=== PATIENT | male | born 1955 ===

== ENCOUNTER 2017-01-25 05:33 | Observation (INO) | payer OTHER ==
[2017-01-25] VITALS (12 sets, daily range): BP systolic 104–150; BP diastolic 29–88
[~2017-01-25] VITALS: Ht 180.3 cm; Wt 90.3 kg
[2017-01-25] MEDS ORDERED: Pantoprazole Inj ONE (06:21)
[2017-01-25] MEDS ORDERED: TRADJENTA5 MG PO (06:43)
[2017-01-25] MEDS ORDERED: GLIPIZIDE XL10 M1 ORAL (06:43)
[2017-01-25] MEDS ORDERED: METFORMIN HCL850 M1 ORAL (06:43)
[2017-01-25] MEDS ORDERED: Glycopyrrolate 0.2mg/ml 1ml Vial ONE (07:00)
[2017-01-25] MEDS ORDERED: Thrombin 5000 units TOPIC ONE ×2 (07:00→11:13)
[2017-01-25] MEDS ORDERED: Norco 5mg/325mg tab ORAL PRN (07:00)
[2017-01-25] MEDS ORDERED: NS Irrig 1000ml ONE (07:00)
[2017-01-25] MEDS ORDERED: Dexamethasone 20mg/5ml IVP ONE (07:00)
[2017-01-25] MEDS ORDERED: Zemuron 50mg/5ml Inj IV ONE (07:00)
[2017-01-25] MEDS ORDERED: Lidocaine 1% MPF 10mg/ml 5ml ONE (07:00)
[2017-01-25] MEDS ORDERED: Propofol 10mg/ml 100ml btl IV ONE (07:00)
[2017-01-25] MEDS ORDERED: Meperidine 25mg/0.5ml Inj (FOR RIGORS ONLY) IV PRN (07:00)
[2017-01-25] MEDS ORDERED: Neostigmine 1mg/ml 10ml Inj ONE (07:00)
[2017-01-25] MEDS ORDERED: LR 1000ml 1,000 ML IVLG SCH (07:00)
[2017-01-25] MEDS ORDERED: Midazolam 2mg/2ml Inj IVP PRN (07:00)
[2017-01-25] MEDS ORDERED: LORazepam Inj 2mg/ml 1ml IV PRN (07:00)
[2017-01-25] MEDS ORDERED: Sterile Water Irrig 1000ml IRRIG ONE (07:00)
[2017-01-25] MEDS ORDERED: ceFAZolin sod 1 GM in NS 55 ML IVPB ONE (07:00)
[2017-01-25] MEDS ORDERED: DiphenhydrAMINE 50mg/ml Inj IVP PRN (07:00)
[2017-01-25] MEDS ORDERED: Norco 7.5mg/325mg tab ORAL PRN (07:00)
[2017-01-25] MEDS ORDERED: Surgicel 4in x 8in TOPIC ONE (07:00)
[2017-01-25] MEDS ORDERED: Midazolam 2mg/2ml Inj ONE (07:00)
[2017-01-25] MEDS ORDERED: Labetalol 5mg/ml 20ml vial IV ONE (07:00)
[2017-01-25] MEDS ORDERED: fentaNYL 100 mcg/2 mL IV ONE (07:00)
[2017-01-25] MEDS ORDERED: Bacitracin 50000 Units Vial IRRIG ONE (07:00)
[2017-01-25] MEDS ORDERED: fentaNYL 250mcg/5ml ONE (07:00)
[2017-01-25] MEDS ORDERED: Ketorolac 30mg Inj IV PRN (07:00)
[2017-01-25] MEDS ORDERED: Metoclopramide 10mg/2ml Inj IVP PRN (07:00)
[2017-01-25] MEDS ORDERED: Hydromorphone 0.5mg/0.5ml inj IVP PRN (07:00)
[2017-01-25] MEDS ORDERED: Ketorolac 60mg Inj IV PRN (07:00)
[2017-01-25] MEDS ORDERED: LR 1000ml ONE (07:00)
[2017-01-25] MEDS ORDERED: Atropine Inj 1mg/10ml Syr IV PRN (07:00)
[2017-01-25] MEDS ORDERED: Oxycodone/Acetaminophen 5-325 ORAL PRN (07:00)
[2017-01-25] MEDS ORDERED: Lidocaine 1% Plain 30 ml INJ ONE (07:00)
[2017-01-25] MEDS ORDERED: fentaNYL 100 mcg/2 mL IV PRN (07:00)
--- NOTE | 2017-01-25 07:00 | Anethesia Preoperative Eval ---
Anesthesia Pre-op PMH/ROS General Date of Evaluation: Jan 25, 2017 Time of Evaluation: 07:11 Anesthesiologist: Jamie ASA Score: ASA 3 Mallampati Score Class I : Soft palate, uvula, fauces, pillars visible Class II: Soft palate, uvula, fauces visible Class III: Soft palate, base of uvula visible Class IV: Only hard plate visible Mallampati Classification: Class II Surgeon: Thelma Diagnosis: Neck Pain Surgical Procedure: ACDF C5-6, C6-7 Anesthesia History: none Family History: no anesthesia problems Allergies: Coded Allergies: No Known Allergies (Unverified , 01/24/17) Medications: see eMAR Past Medical History Cardiovascular: Reports: HTN, other - HL Endocrine: Reports: DM - FBS 178 PSxH Narrative: L Knee Arthroscopy 20yrs [employer] Anesthesia Pre-op Phys. Exam Physician Exam Last Vital Signs Date Time Temp Pulse Resp B/P Pulse Ox O2 Delivery O2 Flow Rate FiO2 01/25/17 06:43 97.8 86 18 150/84 98 Room Air Constitutional: NAD Neurologic: CN 2-12 intact Cardiovascular: RRR Respiratory: CTA Gastrointestinal: S/NT/ND Airway Exam Mallampati Score: Class II MO: full ROM: limited Teeth: intact Anesthesia Pre-op A/P Risk Assessment & Plan Assessment: ASA 3 Plan: GA, BIS,Glidescope Status Change Before Surgery: No Pre-Antibiotics Dru Grams Ancef IV Given Within 1 Hr of Incision: Yes Time Given: 07:57 Yang Ayala MD Jan 25, 2017 07:00
--- NOTE | 2017-01-25 08:21 | Pre-Procedure Note/Attestation ---
Pre-Procedure Note/Attestation Complete Prior to Procedure Planned Procedure: not applicable Procedure Narrative: ADR possible fusion with anterior internal fixation C5-6, C6-7 Indications for Procedure Pre-Operative Diagnosis: traumatice myeloradiculopathy Attestation I attest that I discussed the nature of the procedure; its benefits; risks and complications; and alternatives (and the risks and benefits of such alternatives ), prior to the procedure, with the patient (or the patient's legal contracts representative). I attest that, if there was a reasonable possibility of needing a blood transfusion, the patient (or the patient's legal contracts representative) was given the [facility] standardized written summary, pursuant to the Jonathon Jessica Blood Safety Act ([place] Health and Safety Code # 1645, as amended). I attest that I re-evaluated the patient just prior to the surgery and that there has been no change in the patient's H&P, except as documented below: MARIBEL LEON Jan 25, 2017 08:21
[2017-01-25] MEDS ORDERED: Acetaminophen (Non formulary) 100 ML IV ONE (08:30)
[2017-01-25] MEDS ORDERED: oxyCODONE 5mg IR tab ORAL PRN ×2 (08:45→13:00)
[2017-01-25] MEDS ORDERED: Hydromorphone 0.5mg/0.5ml inj SUBQ PRN (08:45)
[2017-01-25] MEDS ORDERED: Transderm Scop 1mg Transdermal TDERMAL ONE (08:45)
--- NOTE | 2017-01-25 09:36 | Immediate Post-Op Evaluation ---
Immediate Post-Op Evalulation Immediate Post-Op Evalulation Procedure: ACDF C5-6, C6-7 Date of Evaluation: Jan 25, 2017 Time of Evaluation: 11:04 IV Fluids: 1200 LR Blood Products: 0 Estimated Blood Loss: 50 Urinary Output: 0 Blood Pressure Systolic: 104 Blood Pressure Diastolic: 67 Pulse Rate: 79 Respiratory Rate: 16 O2 Sat by Pulse Oximetry: 100 Temperature (Fahrenheit): 97 Pain Score (1-10): 3 Nausea: No Vomiting: No Complications 0 Patient Status: awake, reacts, patent, extubated, none Hydration Status: adequate Dru Grams Ancef IV Given Within 1 Hr of Incision: Yes Time Given: 07:51 Yang Ayala MD Jan 25, 2017 09:36
--- NOTE | 2017-01-25 10:36 | Brief Operative Note ---
Immediate Post Operative Note Operative Note Pre-op Diagnosis: traumatice myeloradiculopathy Procedure: Hemivertebrectomy C5, C6, C7 C5-6, C6-7 PEEK / Titanium Spaced Lordotic, correction deformity Osteopromotive material Anterior Plate Microscope Xray SSEP Post-op Diagnosis: same as pre-op Findings: consistent w/pre-op dx studies Surgeon: Thelma SNOW Group Burner Machine: Sunday MARSH Anesthesiologist: Ady SNOW Anesthesia: general Specimen: none Complications: none Condition: stable Estimated Blood Loss: minimal Implant(s) used?: Yes MARIBEL LEON Jan 25, 2017 10:36
[2017-01-25] MEDS ORDERED: HYDROmorphone 1mg/ml Carpuject SUBQ PRN (10:45)
--- NOTE | 2017-01-25 12:45 | Operative Note - Dictated ---
DATE OF OPERATION: 01/25/2017 SURGEON: Santhosh Renee, Ph.D. M.D. ROAD PACKER OPERATOR: SALMA Kevin. ANESTHESIOLOGIST: Dr. Ayala. ANESTHESIA: General with intubation. ADMITTING/PREOPERATIVE DIAGNOSIS: Posttraumatic cervical spondylotic myeloradiculopathy. POSTOPERATIVE DIAGNOSIS: Posttraumatic cervical spondylotic myeloradiculopathy. OPERATIVE PROCEDURE: 1. Bravo-vertebrectomy C5, C6, C7. 2. Decompression spinal cord C5-6, C6-7 with anterior lordotic cage peek/titanium containing osteopromotive material C5-6, C6-7 with correction of deformity. 3. Anterior internal plate fixation C5-C6, C7. 4. Intraoperative fluoroscopy interpreted by surgeon. 5. High-power microscopic dissection SSEP monitoring. COMPLICATIONS: None. ESTIMATED BLOOD LOSS: Minimal. POSTOPERATIVE CONDITION: Good/stable. SPECIMENS: None. PROCEDURE: The patient was brought to the operating room and in the supine position, general anesthesia intubation was induced. Intravenous antibiotics were administered 30 minutes prior to incision time. SSEP monitoring utilized neutral/normal at all times. Positioning accomplished. Anterior cervical spine sterilely prepped draped free in the usual sterile fashion. Prior to prep and a spinal needle within the sheath was maintained on the skin without penetration and a cross-table radiograph was obtained demonstrating the correct level for incision placement. Interpreted by surgeon. Needle removed and neck sterilely prepped and draped free in usual sterile fashion. Transverse incision appropriately placed left lateral at the appropriate interval sharply through dermis and epidermis. Electrocautery dissected through the subcutaneous tissue to the level of the platysmas muscle was identified isolated and transected in line with the incision. Dissection carried medial to the sternocleidomastoid muscle and the carotid sheath through the deep cervical and pretracheal fascia to the midline between the right and left longus colli muscles. Large anterior osteophyte encountered. Needle bent at 90 degree angle so as to avoid penetration greater than 3 mm in the disc space. Placed at this space and a cross-table image obtained under sterile conditions interpreted by surgeons demonstrating the correct level at C6-C7 for further dissection. Annulotomy performed with small micro disk under direct observation. Pen marking. Needle removed. Longus colli muscles elevated with appropriate intervals. Retractors placed. Under high-power magnification. Anterior osteophytes resected with Midas Daniel bur dissection. Diskectomy bravo-vertebrectomy, inferior C6, superior C7, resection of the large posterior asymmetric right osteophyte. Decompression spinal cord SSEP monitoring stable. Interpositional graft to the appropriate lordotic peek/titanium grafts with osteopromotive material. Countersunk appropriately. SSEP monitoring stable. Attention turned to the C6-C7 interval were large anterior osteophyte was encountered resected bravo-vertebrectomy inferior C5, superior C6. Dissection post longitudinal ligament resection and third large posterior osteophyte decompression spinal cord. SSEP monitoring. No dural tears or leaks noted anytime during the procedure. Interpositional grafting with the appropriately dimension lordotic peek/titanium cages containing osteopromotive material countersunk appropriately. The traction-10 pounds had been removed on the neck. Anterior internal plate fixation undertaken with fluoroscopic guidance demonstrating a correct level angles with compressive screws placed, cephalad caudad 17 mm. The 50 mm screws placed bilaterally into the C6 vertebral body. Locked into place. Radiograph obtained demonstrating excellent placement. Patient is stable. Wound irrigated. Exploration did not reveal any excoriation or laceration of vital structures. FloSeal applied. Reapproximation of the platysmas muscle, the subcutaneous tissue. Surgical strips placed followed by sterile bandage maintain place tape. The patient awakened explain the operating room, transported to postop recovery in good stable condition. Santhosh Renee M.D. DR: ELYSE JOB#: [id number] CC:
[2017-01-25] MEDS ORDERED: Norco 10mg/325mg tab ORAL PRN ×2 (13:00)
[2017-01-25] MEDS ORDERED: LORazepam 0.5mg tab ORAL PRN (13:00)
[2017-01-25] MEDS ORDERED: Chloraseptic Spray 20mL Bottle ORAL PRN (13:30)
[2017-01-25] MEDS ORDERED: D5 1/2NS 1,000 ML IV SCH (13:30)
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
--- NOTE | 2017-01-25 15:57 | Diagnostic Imaging Report ---
Indications: Neck pain, cervical fusion Technique: Above procedure including fluoroscopy performed by Dr. Renee. Portable intraoperative images of cervical spine obtained in lateral projections. Findings: Comparison: None Initial image demonstrates localizing needle tip overlying the anterior aspect of the narrowed C5-6 disc space. Fusion hardware appears to reside within the C6-7 disc space. Subsequent image demonstrates placement of fusion hardware within the C5-6 disc space, fixation plate and anchoring screws across the anterior margins of C5-C7. IMPRESSION: Intraoperative changes as described
[2017-01-25] MEDS: ceFAZolin sod 1 GM in D5W 55 ML IV SCH (17:14)
--- NOTE | 2017-01-25 18:47 | Cardiology Progress Note ---
Assessment/Plan Assessment/Plan full note dicateted [id number] Objective Last 24 Hour Vital Signs Date Time Temp Pulse Resp B/P Pulse Ox O2 Delivery O2 Flow Rate FiO2 01/25/17 16:00 97.3 98 19 129/79 97 Nasal Cannula 3.0 01/25/17 13:00 97.5 75 18 131/82 Nasal Cannula 2.0 97 01/25/17 12:37 97.1 76 19 127/81 Nasal Cannula 3.0 01/25/17 12:00 97.8 76 20 127/80 98 Nasal Cannula 3.0 01/25/17 11:45 79 20 131/83 98 Nasal Cannula 3.0 01/25/17 11:31 77 20 121/75 98 Nasal Cannula 3.0 01/25/17 11:15 90 20 116/71 98 Simple Mask 8.0 01/25/17 11:03 95 20 111/67 98 Simple Mask 8.0 01/25/17 10:58 94 20 135/56 98 Simple Mask 8.0 01/25/17 10:57 79 16 100 01/25/17 10:53 97.0 79 20 104/29 98 Simple Mask 8.0 01/25/17 06:43 97.8 86 18 150/84 98 Room Air Intake and Output 01/24/17 01/25/17 19:00 07:00 # Voids 1 QUYNH MEHTA Jan 25, 2017 18:46
[2017-01-25] MEDS: GlipiZIDE 10mg tab ORAL SCH (20:27)
[2017-01-26 00:05] VITALS: BP 130/80
[2017-01-26] MEDS: ceFAZolin sod 1 GM in D5W 55 ML IV SCH ×2 (00:30→08:34)
[2017-01-26 04:00] VITALS: BP 112/61
[2017-01-26] MEDS ORDERED: GlipiZIDE 10mg tab ORAL SCH (06:30)
[2017-01-26 06:42] LABS: ALANINE AMINOTRANSFERASE 9 U/L (3-41); ALBUMIN/GLOBULIN RATIO 1.1 (1.0-2.7); ANION GAP 15 (5-15); ASPARTATE AMINO TRANSFERASE 14 U/L (5-40); CALCIUM 8.2 mg/dL (8.6-10.2); CARBON DIOXIDE 23 mEQ/L (20-30); CHLORIDE 104 mEQ/L (98-107); CREATININE 1.1 mg/dL (0.7-1.2); GLOMERULAR FILTRATION RATE > 60 mL/min (>60); HEMOGLOBIN A1C 6.7 % (< 6.0); HEMOLYSIS 3; POTASSIUM 4.4 mEQ/L (3.4-4.9); SODIUM 142 mEQ/L (135-145); TOTAL PROTEIN 6.5 g/dL (6.6-8.7)
[2017-01-26] MEDS: GlipiZIDE 10mg tab ORAL SCH (06:48)
[2017-01-26 06:58] LABS: CHOLESTEROL 114 mg/dL (< 200); CHOLESTEROL/HDL RATIO 3.7 (3.3-4.4); LDL CHOLESTEROL (CALC.) 63 mg/dL (60-99)
--- NOTE | 2017-01-26 06:58 | 48 Hour Post Anesthesia Eval ---
Post Anesthesia Evaluation Procedure: ACDF C5-6, C6-7 Date of Evaluation: Jan 26, 2017 Time of Evaluation: 06:16 Blood Pressure Systolic: 112 0: 61 Pulse Rate: 89 Respiratory Rate: 19 Temperature (Fahrenheit): 98 O2 Sat by Pulse Oximetry: 95 Airway: patent Nausea: No Vomiting: No Pain Intensity: 1 Hydration Status: adequate Cardiopulmonary Status: Stable Mental Status/LOC: patient returned to baseline Follow-up Care/Observations: 0 Post-Anesthesia Complications: 0 Follow-up care needed: ready to discharge Yang Ayala MD Jan 26, 2017 06:58
--- NOTE | 2017-01-26 07:00 | Consultation ---
DATE OF CONSULTATION: 01/25/2017 NOTE: "POOR AUDIO QUALITY" CARDIOLOGY CONSULTATION REFERRING PHYSICIAN: Santhosh Renee M.D. REASON FOR REFERRAL: Postoperative medical care. HISTORY OF PRESENT ILLNESS: This is a 61-year-old gentleman with a history of diabetes mellitus, who was seen in preop. The patient initially had a poor blood sugar control. The patient's medications were adjusted. On subsequent followup, his blood sugar was 126. The patient has undergone his proposed neck surgery today and is doing well. He has actually been walking around in the room and was anxious to go home. He does not really have any shortness of breath. He has some soreness around the neck area. No heart pounding or palpitations. No dizziness when he sits up or stands up. PAST MEDICAL HISTORY: Positive for history of diabetes mellitus, hyperlipidemia, arthritis, enlarged prostate and shingles. He has had knee surgery before. However, postoperatively on prior occasion postanesthesia, he has nausea. ALLERGIES: He has no known drug allergies. SOCIAL HISTORY: Never smoked and never drank. No drugs. Single. No kids. Worked in real estate, now part-time work. REVIEW OF SYSTEMS: Gastrointestinal: No nausea or vomiting. No bowel movement. Genitourinary: He has had in the urine. Pulmonary: No coughing or wheezing. He does have some sore throat and pain around the site of his incision on the anterior neck area below. Constitutional: Negative. PHYSICAL EXAMINATION: GENERAL: Shows to be an elderly gentleman, in no apparent distress. NECK: He has got dressing on the left side. sit up. He is communicative. LUNGS: Clear to auscultation and percussion. CARDIAC EXAMINATION: S1 is normal. S2 is normal. Regular rate and rhythm. No heaves, thrills, or gallops noted. ABDOMEN: Soft and nontender. Positive bowel sounds. EXTREMITIES: There is no edema. He has pneumatic compression stockings in place. He moves all four extremities without any problems. LABORATORY DATA: No laboratories are ordered. Postoperatively, his blood sugars have been elevated prior to his oral diabetic medication. ASSESSMENT AND PLAN: 1. . 2. Hyperlipidemia. 3. Obesity. 4. . This patient has undergone surgery with no findings. He has been walking around the lr. He was started on dextrose and intravenous fluids earlier today. His blood sugars have been elevated. The dextrose will be discontinued. The patient's oral medications have been resumed including his Glucophage that he will take 3 times a day and glipizide that he will be taking twice a day and Onglyza that he will be taking once a day. His blood sugars will be monitored. Sliding scale will be started in the morning if needed. The patient will be followed subsequently. He is very anxious to go home. He will be discharged home. He understands the need to follow up with me or his primary care physician next week. He is instructed to keep a log of his blood sugars on a daily basis and to bring that log with him to either his primary care physician or to me. He is further instructed if his blood sugar remains elevated, his primary care physicians will not be following for those issues, to see me next week as well for adjustment of his medication. He indicates understanding and will abide by those recommendations. Steve Panchal M.D. DR: PRAVEEN JOB#: [id number] CC:
--- NOTE | 2017-01-26 07:40 | Cardiology Progress Note ---
Assessment/Plan Assessment/Plan 1. DM 2. Hyperlipidemia. 3. Obesity. 4. Cervical myeloradiculapapthy 5. neck and gianna discomfort a1c 6.7 bs 126 on labs and 174 on bedside monitor ldl perfect at 63 will have stat ekg and trop and will decrease the diabetic medication ns bolus Subjective Cardiovascular: Reports: chest pain - had soreness in nona middleo the chest and neck all nite not pain he says , Denies: lightheadedness Respiratory: Denies: shortness of breath Gastrointestinal/Abdominal: Denies: abdominal pain Genitourinary: Denies: burning Subjective after walking this am was dizzy sweat Objective Last 24 Hour Vital Signs Date Time Temp Pulse Resp B/P Pulse Ox O2 Delivery O2 Flow Rate FiO2 01/26/17 06:58 89 19 95 01/26/17 04:00 98.1 89 19 112/61 95 Room Air 01/26/17 00:05 98.1 93 18 130/80 97 Room Air 01/25/17 20:02 98.2 108 19 132/88 97 Room Air 01/25/17 16:00 97.3 98 19 129/79 97 Nasal Cannula 3.0 01/25/17 13:00 97.5 75 18 131/82 Nasal Cannula 2.0 97 01/25/17 12:37 97.1 76 19 127/81 Nasal Cannula 3.0 01/25/17 12:00 97.8 76 20 127/80 98 Nasal Cannula 3.0 01/25/17 11:45 79 20 131/83 98 Nasal Cannula 3.0 01/25/17 11:31 77 20 121/75 98 Nasal Cannula 3.0 01/25/17 11:15 90 20 116/71 98 Simple Mask 8.0 01/25/17 11:03 95 20 111/67 98 Simple Mask 8.0 01/25/17 10:58 94 20 135/56 98 Simple Mask 8.0 01/25/17 10:57 79 16 100 01/25/17 10:53 97.0 79 20 104/29 98 Simple Mask 8.0 General Appearance: alert Neck: supple Cardiovascular: normal rate, regular rhythm Respiratory/Chest: lungs clear, normal breath sounds Abdomen: normal bowel sounds, non tender, soft Extremities: no swelling Intake and Output 01/25/17 01/26/17 19:00 07:00 Intake Total 2270 ml 240 ml Output Total 50 ml Balance 2220 ml 240 ml Intake Oral 540 ml 240 ml IV Total 1730 ml Output Estimated Blood Loss 50 ml # Voids 1 3 Laboratory Tests Test 01/26/17 05:40 Sodium Level 142 mEQ/L (135-145) Potassium Level 4.4 mEQ/L (3.4-4.9) Chloride Level 104 mEQ/L (98-107) Carbon Dioxide Level 23 mEQ/L (20-30) Anion Gap 15 (5-15) Blood Urea Nitrogen 13 mg/dL (7-23) Creatinine 1.1 mg/dL (0.7-1.2) Estimat Glomerular Filtration Rate > 60 mL/min (>60) Glucose Level 126 mg/dL (74-106) H Hemoglobin A1c 6.7 % (< 6.0) H Calcium Level 8.2 mg/dL (8.6-10.2) L Total Bilirubin 0.6 mg/dL (0.0-1.2) Aspartate Amino Transf (AST/SGOT) 14 U/L (5-40) Alanine Aminotransferase (ALT/SGPT) 9 U/L (3-41) Alkaline Phosphatase 49 U/L (40-129) Total Protein 6.5 g/dL (6.6-8.7) L Albumin 3.5 g/dL (3.5-5.2) Globulin 3.0 g/dL Albumin/Globulin Ratio 1.1 (1.0-2.7) Triglycerides Level 102 mg/dL (< 150) Cholesterol Level 114 mg/dL (< 200) LDL Cholesterol 63 mg/dL (60-99) HDL Cholesterol 31 mg/dL (> 60) Cholesterol/HDL Ratio 3.7 (3.3-4.4) QUYNH MEHTA Jan 26, 2017 07:40
[2017-01-26 08:00] VITALS: BP 101/71
[2017-01-26 08:28] LABS: TROPONIN I < 0.30 ng/mL (<=0.30)
[2017-01-26 12:00] VITALS: BP 114/70
[2017-01-26 14:25] LABS: TROPONIN I < 0.30 ng/mL (<=0.30)
--- NOTE | 2017-01-26 16:45 | Progress Note ---
DATE: 01/26/2017 ACUTE PAIN MANAGEMENT PHYSICIAN PROGRESS NOTE: VITAL SIGNS: Afebrile, pulse 89, respirations 16, blood pressure 101/71, and oxygen saturation 93% on room air. LABORATORY DATA: Laboratory studies from this morning showed sodium 142, potassium 4.4, chloride 104, bicarbonate 23, BUN 13, creatinine 1.1, glucose 126. Hemoglobin A1c 6.7. Calcium 8.2. Total bilirubin 0.6, AST 14, ALT 9, alkaline phosphatase 49, total protein 6.5, and albumin 3.5. MEDICATIONS: Medication administration record reviewed. Medications include IV fluids, Protonix, diabetic medications, and antibiotics. P.r.n. medications include Benadryl, Catapres, Chloraseptic, Ativan, Dilaudid, Zofran, Phenergan, Soma, Roxicodone, Mylanta, and [place]. I spent over 60 minutes in consultation today. I saw the patient at the bedside and discussed the case with engineering inspector, Dr. Panchal. The patient has been doing extremely well. He has been ambulating independently around the room. His neck dressing appears clean and dry. He is swallowing, breathing, and phonating within normal limits after neck surgery. He has been advancing his diet. Pain has been well controlled using the Chloraseptic topical spray along with p.r.n. analgesics as ordered above. The patient already has prescriptions for home medications for pain. The patient lives at home with his partner who will be able to assist with activities of daily living. The patient denies any nausea symptoms. The patient reported epigastric pain to Dr. Panchal, who has started workup for chest pain. Troponin has already been drawn and an EKG is being run presently. The patient denies any shortness of breath or chest pain at this time. From surgical and pain management standpoint, the patient appears stable for discharge once he is cleared by the medical team. I would continue to encourage incentive spirometer usage for good pulmonary toilet. Drew Francois M.D. DR: Leon JOB#: [id number] CC:
--- NOTE | 2017-01-30 11:46 | Cardiology Report ---
APPROVED REPORT EXAM: Two-dimensional and M-mode echocardiogram with Doppler and color Doppler. INDICATION Chest Pain M-Mode DIMENSIONS IVSd0.8 (0.7-1.1cm)Left Atrium (MM)3.5 (1.6-4.0cm) LVDd4.8 (3.5-5.6cm)Aortic Root3.5 (2.0-3.7cm) PWd0.7 (0.7-1.1cm)Aortic Cusp Exc.2.0 (1.5-2.0cm) LVDs3.4 (2.5-4.0cm) PWs1.2 cm Normal left ventricular chamber size, systolic function and wall motion. Left ventricular ejection fraction estimated to be 55 %. No evidence of ventricular hypertrophy. No evidence of pericardial fat or effusion. All other cardiac chamber sizes are within normal limits. Mild focal aortic valve sclerosis with adequate cusp excursion. Mildly thickened mitral valve leaflets with normal excursion. Mild mitral annulus and aortic root calcification. Normal pulmonic valve structure. Normal tricuspid valve structure. IVC dilated at 1.9 cm with physiologic collapse. A color flow and spectral Doppler study was performed and revealed: No aortic regurgitation. Trace mitral regurgitation. Mitral diastolic velocities suggest reduced left ventricular relaxation (Grade I). Trace tricuspid regurgitation. Tricuspid systolic velocities suggests peak right ventricular systolic pressure of 30 mmHg. No pulmonic regurgitation present.
--- NOTE | 2017-01-31 08:14 | Cardiology Report ---
APPROVED REPORT EKG Measurement Heart [id number] Normal sinus rhythm Normal ECG
== END 2017-01-26 15:20 | disposition home or self-care (01) ==
LOC: SUR 05:33 → INTOOBSV 12:06 → 3E 12:06
DX: M47.12 Other spondylosis with myelopathy, cervical region (principal); M47.22 Other spondylosis with radiculopathy, cervical region; G89.18 Other acute postprocedural pain; E11.9 Type 2 diabetes mellitus without complications; Z79.84 Long term (current) use of oral hypoglycemic drugs; E78.5 Hyperlipidemia, unspecified; I10 Essential (primary) hypertension; N40.0 Benign prostatic hyperplasia without lower urinary tract symptoms; M19.90 Unspecified osteoarthritis, unspecified site; F41.9 Anxiety disorder, unspecified; E66.9 Obesity, unspecified; Z68.28 Body mass index [BMI] 28.0-28.9, adult; B02.9 Zoster without complications
CPT/HCPCS: 22551; 22552; 22853; 36415; 72040; 76001; 80053; 80061; 82962; 83036; 84484; 93005; 93306; 96360; 96361; 96365; 96366; 97110; 97116; 97161; 97530; C1713; C8957; C9113; G0378; G0379; J0690; J2001; J2250; J2405; J2704; J2710; J3010; J7120; 94003; 94150